=== PATIENT | male | born 1980 | race Hispanic/Latino ===

== ENCOUNTER 2018-03-12 23:23 | Emergency (ER) | payer SELFPAY ==
[2018-03-13] MEDS ORDERED: predniSONE 20 MG TAB ONE (00:40)
== END 2018-03-13 00:43 | disposition home or self-care (01) ==
LOC: ERS 23:23
DX: L73.9 Follicular disorder, unspecified (principal); F17.210 Nicotine dependence, cigarettes, uncomplicated
CPT/HCPCS: 99282; J7506

== ENCOUNTER 2018-10-09 19:40 | Emergency (ER) | payer SELFPAY | END 2018-10-10 00:15 | disposition home or self-care (01) | LOC: ERS 19:40 | DX: S05.02XA Injury of conjunctiva and corneal abrasion without foreign body, left eye, initial encounter (principal); H16.002 Unspecified corneal ulcer, left eye; F17.210 Nicotine dependence, cigarettes, uncomplicated; W22.8XXA Striking against or struck by other objects, initial encounter | CPT/HCPCS: 99283 ==

== ENCOUNTER 2019-02-09 17:44 | Inpatient (IN) | payer SELFPAY ==
[2019-02-09] MEDS ORDERED: Ondansetron ODT 4 MG TAB ONE (18:07)
[2019-02-09 18:35] LABS: #Basophils 0.1 thou/uL (0.0-0.2); #Lymphocytes 2.1 thou/uL (1.20-3.40); #Monocytes 0.9 thou/uL (0.11-0.59); #Neutrophils 12.8 thou/uL (1.40-6.50); %Basophils 0.6 % (0.0-1.0); %Eosinophils 0.1 % (0.0-10.0); %Lymphocytes 13.3 % (21.0-51.0); %Monocytes 5.4 % (0.0-10.0); %Neutrophils 80.6 % (42.0-75.0); Hemoglobin 18.7 g/dL (14.0-18.0); Mean Corpuscular HGB CONC 31.4 g/dL (32.0-36.0); Mean Corpuscular Hemoglobin 28.4 pg (27.0-31.0); Mean Corpuscular Volume 90.4 fL (78.0-98.0); RBC Distribution Width 13.6 % (11.5-14.5); Red Blood Cell (RBC) Count 6.59 mill/uL (4.70-6.10); White Blood Cell (WBC) Count 15.8 thou/uL (4.8-10.8)
[2019-02-09 18:57] LABS: ALT (SGPT) 23 U/L (8-55); AST (SGOT) 28 U/L (5-34); Albumin 5.3 g/dL (3.5-5.0); Alkaline Phosphatase 88 U/L (40-150); Anion Gap 19 mmol/L (10-20); BUN (Urea Nitrogen) 46 mg/dL (8.9-20.6); Bilirubin, Total 1.3 mg/dL (0.2-1.2); Calc. Creatinine Clearance 0 mL/min (70-130); Calcium 11.2 mg/dL (7.8-10.44); Carbon Dioxide 28 mmol/L (22-29); Chloride 91 mmol/L (98-107); Estimated GFR-MDRD 22; Globulin 4.5 g/dL (2.4-3.5); Glucose 132 mg/dL (70-105); Lipase 30 U/L (8-78); Protein, Total 9.8 g/dL (6.0-8.3); Sodium 134 mmol/L (136-145)
[2019-02-09 18:58] LABS: Large Platelets MODERATE; MDiff Complete? YES; Mean Platelet Volume 12.7 fL (7.4-10.4); Platelet Count 225 thou/uL (130-400)
[2019-02-09] MEDS ORDERED: Ondansetron PF 4 MG/2 ML Vial ONE (19:52)
--- NOTE | 2019-02-09 23:23 | ULT ---
Ultrasound renal: HISTORY: Severe acute kidney injury in 38-year-old male FINDINGS: No hydronephrosis bilaterally. Right kidney 10.5 x 5.5 x 5.5 cm Left kidney 11 x 6 x 5.5 cm No gross abnormality of urinary bladder. IMPRESSION: No hydronephrosis.
[2019-02-10 00:39] LABS: Bilirubin Small (Negative); Blood, Urine Negative (Negative); Clarity CLOUDY (Clear); Glucose, Urine (Dipstick) Negative (Negative); Leukocyte Trace (Negative); Nitrite Negative (Negative); Protein, Urine (Dipstick) 30 mg/dL (Neg-Trace); Specific Gravity, Urine 1.022 (1.002-1.036)
[2019-02-10 00:41] LABS: Pathc Cast-AUWi Flag 12.64 (0-2.49)
[2019-02-10 00:51] LABS: Bacteria/HPF Rare-Few HPF (None Seen); Renal Epithelial 0-3 HPF (0-3); Transitional Epithelial 0-3 HPF (0-3)
[2019-02-10 00:52] LABS: Hyaline Casts/LPF >50 HYALINE CAST LPF (0-3 Hyaline); Other Casts/LPF 0-3 FINELY GRAN LPF (0-3 Hyaline)
[2019-02-10] MEDS ORDERED: Ondansetron PF 4 MG/2 ML Vial IVP PRN (01:41)
[2019-02-10] MEDS ORDERED: Ondansetron ODT 4 MG TAB SL PRN (01:41)
[2019-02-10] MEDS ORDERED: Sodium Chloride 0.9% 1,000 ML IV SCH (01:41)
[2019-02-10] MEDS ORDERED: Senokot S 8.6-50 MG TAB PO PRN (01:52)
[2019-02-10] MEDS ORDERED: Acetaminophen 325 MG TAB PO PRN (01:52)
[2019-02-10] MEDS ORDERED: Acetaminophen 650 MG Suppository PR PRN (01:52)
[2019-02-10 02:05] VITALS: BMI 29.9
[2019-02-10] MEDS: Sodium Chloride 0.9% 1,000 ML IV SCH ×4 (02:08→17:02)
--- NOTE | 2019-02-10 02:37 | HP ---
This is SATHYA Whittington dictating a report for Dwayne London MD. CHIEF COMPLAINT: Persistent vomiting. HISTORY OF PRESENT ILLNESS: Mr. Goodwin is a 38-year-old man who presents to the ER today complaining of persistent nausea and vomiting. The patient states he first began to feel unwell on Saturday. 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 The patient states he has had persistent vomiting 3-4 times a day since then. He has had decreased oral intake and has recently noted decreased urinary output. He reports having generalized abdominal soreness associated with persistent vomiting and some mild discomfort in his back again due to the retching. He denies experiencing any associated diarrhea. Has not had fevers, but reports feeling chills at times with sweats. He denies any chest pain, palpitations, or shortness of breath. Has not been around anyone who has been unwell. Denies any recent travels. Denies any alcohol or drug use. He reports having a lack of appetite. He has been drinking excess caffeinated beverages at baseline and has continued to do so. Occasionally, he does drink Gatorade. All other review of systems negative. In the ED, he underwent laboratory studies that showed a severe acute LUCIO. He was started on IV fluids and received 3 L of fluids. ALLERGIES: NO KNOWN DRUG ALLERGIES. CURRENT MEDICATIONS: None. PHYSICAL EXAMINATION: GENERAL: The patient appears well developed, well nourished, in no acute distress. VITAL SIGNS: Temperature 98.3, pulse 79, respirations 17, O2 saturation 98% on room air, blood pressure 119/71. HEENT: Normocephalic and atraumatic. Pupils are equal, round, and reactive to light. Sclerae are without icterus. Oropharynx is clear. NECK: Supple. No lymphadenopathy. LUNGS: Clear to auscultation bilaterally. CARDIAC: Regular rate and rhythm. ABDOMEN: Soft. Mild discomfort to diffuse palpation. No guarding or rigidity. No renal angle tenderness. EXTREMITIES: Without lower leg edema, calf pain, or swelling. NEUROLOGIC: Alert and oriented x3. SKIN: Without rash or jaundice. LABORATORY DATA: White blood count 15.8, hemoglobin 18.7, hematocrit 59.6, platelets 225. Sodium 134, potassium 4.0, chloride 91, carbon dioxide 28, anion gap 19, BUN 46, creatinine 3.20, GFR 22. Last GFR done in February of 2014 showed a GFR of 87. Glucose 132, calcium 11.2, magnesium 3.1, total bilirubin 1.3, AST 28, ALT 23, alkaline phosphatase 88, CK 377. Total protein 9.8, albumin 5.3, lipase 30. Urinalysis, payam and cloudy appearance, protein 30, trace ketones, small bilirubin, trace leukocyte esterase, white blood cells 7 to 10, squamous epithelial cells 4 to 6, greater than 50 hyaline casts. Renal ultrasound, no hydronephrosis. IMPRESSION AND PLAN: Mr. Goodwin is a 38-year-old man, who is being admitted for management of the followin. Severe acute kidney injury. His creatinine is currently 3.2, and GFR is 22. Previously, his GFR was 87 and creatinine was 1.05 back in February 2014. The patient denies having any underlying kidney issues or problems. He is not on any medications. We will continue IV hydration and repeat renal function studies in the morning. Renal ultrasound is unremarkable. Consult has been placed to Nephrology. 2. Nausea and vomiting. The patient with improved symptoms. We will continue antiemetics. 3. Electrolyte abnormalities. His potassium is 4.9, magnesium is 3.1. We will continue to monitor and replace as necessary. 4. Deep venous thrombosis prophylaxis with mechanical SCDs. 5. Gastrointestinal prophylaxis. 6. Full code status. The patient's case was discussed with Dr. London who agrees with plan of care as described above. Job ID: [id number]
[2019-02-10 06:19] LABS: Band 2 % (5-11); Hemoglobin 14.4 g/dL (14.0-18.0); Large Platelets SLIGHT; Lymphocytes 31 % (21-51); MDiff Complete? YES; Mean Corpuscular HGB CONC 31.9 g/dL (32.0-36.0); Mean Corpuscular Hemoglobin 29.6 pg (27.0-31.0); Mean Corpuscular Volume 92.8 fL (78.0-98.0); Monocytes 2 % (0-10); Neutrophil 56 % (42-75); Platelet Count 157 thou/uL (130-400); Platelet Morphology Comment Appears Adequate; RBC Distribution Width 13.4 % (11.5-14.5); Reactive Lymphocytes 9 % (0-10); Red Blood Cell (RBC) Count 4.89 mill/uL (4.70-6.10)
[2019-02-10] MEDS: Famotidine/PF 20 mg/2ml Vial SLOW IVP SCH (08:41)
[2019-02-10 08:43] LABS: Chloride 103 mmol/L (98-107); Potassium 3.5 mmol/L (3.5-5.1); Sodium 136 mmol/L (136-145)
[2019-02-10 08:44] LABS: Glucose 119 mg/dL (70-105)
[2019-02-10 08:45] LABS: Anion Gap 13 mmol/L (10-20); Carbon Dioxide 24 mmol/L (22-29)
[2019-02-10 08:48] LABS: BUN (Urea Nitrogen) 30 mg/dL (8.9-20.6)
[2019-02-10 08:54] LABS: Calc. Creatinine Clearance 97 mL/min (70-130); Calcium 8.9 mg/dL (7.8-10.44); Estimated GFR-MDRD 55
--- NOTE | 2019-02-10 14:10 | PDOC.PN ---
- Subjective Encounter Start Date: 02/10/19 Encounter Start Time: 08:40 Pt seen for followup re: LUCIO. Says he feels better. No vomiting since yesterday. - Objective Resuscitation Status - Order Detail: 02/10/19 01:52 Resuscitation Status Routine Co-Sign Provider: Resuscitation Status: FULL: Full Resuscitation Vital Signs & Weight: Vital Signs (12 hours) Temp Pulse Resp BP Pulse Ox 02/10/19 11:32 98 F 71 17 127/76 97 02/10/19 07:51 98.5 F 75 16 124/63 98 02/10/19 04:00 97.5 F L 73 16 112/67 96 Weight Weight 215 lb I&O: 02/09/19 02/10/19 02/11/19 06:59 06:59 06:59 Intake Total 1470 Balance 1470 Result Diagrams: 02/10/19 05:06 02/10/19 07:38 Phys Exam - Physical Examination Constitutional: NAD HEENT: moist MMs, sclera anicteric, oral pharynx no lesions, 2+ tonsils Neck: no nodes, no JVD, supple, full ROM Respiratory: clear to auscultation bilateral Cardiovascular: RRR, no rub S1, s2 Gastrointestinal: soft, non-tender, no distention, positive bowel sounds Neurological: moves all 4 limbs Psychiatric: normal affect, A&O x 3 Dx/Plan (1) LUCIO (acute kidney injury) Code(s): N17.9 - ACUTE KIDNEY FAILURE, UNSPECIFIED Status: Acute Comment: Prerenal due to vomiting, improving, creatinine 1.44 today (2) Nausea and vomiting Code(s): R11.2 - NAUSEA WITH VOMITING, UNSPECIFIED Status: Resolved - Plan out of bed/ambulate * . Likely home in 24 hrs Review of Systems - Review of Systems Constitutional: negative: fever, chills, sweats, weakness, malaise Respiratory: negative: Cough, Shortness of Breath, SOB with Excertion, Pleuritic Pain, Wheezing Cardiovascular: negative: chest pain, palpitations, orthopnea, paroxysmal nocturnal dyspnea, edema, light headedness Gastrointestinal: negative: Nausea, Vomiting, Abdominal Pain, Diarrhea, Constipation, Melena, Hematochezia Genitourinary: negative: Dysuria, Frequency, Incontinence, Hematuria, Retention - Medications/Allergies Allergies/Adverse Reactions: Allergies Allergy/AdvReac Type Severity Reaction Status Date / Time No Known Allergies Allergy Verified 02/10/19 02:07 Medications: Current Medications Acetaminophen (Tylenol) 650 mg PO Q4H PRN PRN Reason: Headache/Fever/Mild Pain (1-3) Last Admin: 02/10/19 08:41 Dose: 650 mg Acetaminophen (Tylenol) 650 mg AL Q4H PRN PRN Reason: Headache/Fever/Mild Pain (1-3) Famotidine (Pepcid) 20 mg SLOW IVP Q24HR CURTIS Last Admin: 02/10/19 08:41 Dose: 20 mg Sodium Chloride (Normal Saline 0.9%) 1,000 mls @ 125 mls/hr IV .Q8H CURTIS Last Admin: 02/10/19 08:58 Dose: Not Given Senna/Docusate Sodium (Senokot S) 2 tab PO BID PRN PRN Reason: Constipation Sodium Chloride (Flush - Normal Saline) 10 ml IVF Q12HR PRN PRN Reason: Saline Flush Sodium Chloride (Flush - Normal Saline) 10 ml IVF PRN PRN PRN Reason: Saline Flush
--- NOTE | 2019-02-10 14:31 | CON ---
DATE OF CONSULTATION: 02/10/2019 CONSULTING PHYSICIAN: Dr. Borja. REASON FOR CONSULT: Acute kidney injury. REASON FOR ADMISSION: Weakness and vomiting. HISTORY OF PRESENT ILLNESS: A 38-year-old male with a known significant past medical history, came to the hospital with nausea, vomiting, and weakness, and was found to have elevated creatinine. Nephrology consulted. The patient has been throwing up, but not able to eat much in last few days. HOME MEDICATION: None. ALLERGIES: NONE. PAST MEDICAL HISTORY: Not significant. PAST SURGICAL HISTORY: None. SOCIAL HISTORY: No smoking, alcohol, or illicit drugs. FAMILY HISTORY: No history of kidney disease. REVIEW OF SYSTEMS: CONSTITUTIONAL: Negative for weight loss or gain, ability to conduct usual activities. SKIN: Negative for rash, itching. EYES: Negative for double vision, pain. ENT/MOUTH: Negative for nose bleeding, neck stiffness, pain, tenderness. CARDIOVASCULAR: Negative for palpitations, dyspnea on exertion, orthopnea. RESPIRATORY: Negative for shortness of breath, wheezing, cough, hemoptysis, fever or night sweats. GASTROINTESTINAL: Negative for poor appetite, abdominal pain, heartburn, nausea, vomiting, constipation, or diarrhea. GENITOURINARY: Negative for urgency, frequency, dysuria, nocturia. MUSCULOSKELETAL: Negative for pain, swelling. NEUROLOGIC/PSYCHIATRIC: Negative for anxiety, depression. ALLERGY/IMMUNOLOGIC: Negative for skin rash, bleeding tendency. Are negative was supple. PHYSICAL EXAMINATION: GENERAL: Well built male, in no apparent distress. VITAL SIGNS: Temperature 98.5, pulse 75, respiratory rate 16, and blood pressure 124/63. HEENT: Atraumatic and normocephalic. Oral mucosa is moist. NECK: Supple. CV: S1 and S2 heard. Rate and rhythm regular. RESPIRATORY: Clear. GI: Abdomen is soft. MUSCULOSKELETAL: 1+ edema. Dermatologic: No skin rash. NEUROLOGIC: Alert and awake. PSYCHIATRIC: Mood and affect normal LABORATORY DATA: Potassium is 3.5, BUN is 30, and creatinine is 1.4. ASSESSMENT AND PLAN: 1. Acute kidney injury, most likely from volume depletion. Creatinine is better after hydration. Hemoconcentration labs are better. 2. Hyponatremia. Better. 3. Hypoalbuminemia. Most likely from hemoconcentration. 4. Labs are looking better. The patient is clinically and symptomatically better. Continue hydration if tolerated. Renal ultrasound reviewed and no hydronephrosis seen. We will continue to follow. Thank you for the consult. Job ID: [id number]
[2019-02-11] MEDS: Sodium Chloride 0.9% 1,000 ML IV SCH ×2 (01:09→09:12)
[2019-02-11] MEDS: Famotidine/PF 20 mg/2ml Vial SLOW IVP SCH (08:32)
[2019-02-11 08:41] VITALS: BP 124/74; TEMP 97.5
[2019-02-11 10:07] LABS: Anion Gap 8 mmol/L (10-20); BUN (Urea Nitrogen) 15 mg/dL (8.9-20.6); Calc. Creatinine Clearance 142 mL/min (70-130); Calcium 8.9 mg/dL (7.8-10.44); Carbon Dioxide 30 mmol/L (22-29); Chloride 106 mmol/L (98-107); Estimated GFR-MDRD 86; Glucose 105 mg/dL (70-105); Potassium 4.2 mmol/L (3.5-5.1); Sodium 140 mmol/L (136-145)
[2019-02-11 11:06] LABS: Hemoglobin 13.4 g/dL (14.0-18.0); Mean Corpuscular HGB CONC 32.6 g/dL (32.0-36.0); Mean Corpuscular Hemoglobin 30.3 pg (27.0-31.0); Mean Corpuscular Volume 93.1 fL (78.0-98.0); Mean Platelet Volume 13.1 fL (7.4-10.4); Platelet Count 120 thou/uL (130-400); RBC Distribution Width 13.5 % (11.5-14.5); Red Blood Cell (RBC) Count 4.42 mill/uL (4.70-6.10); White Blood Cell (WBC) Count 7.3 thou/uL (4.8-10.8)
[2019-02-11 11:08] LABS: #Eosinphils 0.2 thou/uL (0.0-0.7); #Lymphocytes 2.1 thou/uL (1.20-3.40); #Monocytes 0.5 thou/uL (0.11-0.59); #Neutrophils 4.5 thou/uL (1.40-6.50); %Basophils 0.4 % (0.0-1.0); %Eosinophils 2.4 % (0.0-10.0); %Lymphocytes 28.8 % (21.0-51.0); %Monocytes 6.7 % (0.0-10.0); %Neutrophils 61.8 % (42.0-75.0); Platelet Morphology Comment Appears Decreased; RBC Morphology Normal
--- NOTE | 2019-02-11 11:34 | PRG ---
DATE OF SERVICE: 02/11/2019 SUBJECTIVE: Patient was seen and examined at bedside and overnight events noted. Patient denies any shortness of breath or chest pain or palpitation. No history of nausea or vomiting or diarrhea or fever or chills or cramps. OBJECTIVE: GENERAL: This is a well built male in no apparent distress. VITAL SIGNS: Temperature 97.6. Heart rate 69. Respiratory rate 18. Blood pressure 130/76. HEENT: Atraumatic, normocephalic. Oral mucosa is moist NECK: Supple. CARDIOVASCULAR: S1, S2 heard. Rate and rhythm regular. RESPIRATORY: Clear to auscultation. GASTROINTESTINAL: Abdomen is soft. MUSCULOSKELETAL: No tenderness. No edema. DERMATOLOGIC: No skin rash. NEUROLOGIC: Alert and awake and oriented X3. No focal neurologic deficits. Moving all the extremities. PSYCHIATRIC: Mood and affect normal. LABORATORY DATA: Potassium 4.2, BUN is 15, creatinine is 0.9. ASSESSMENT AND PLAN: 1. Acute kidney injury, much better. 2. Hypovolemia. 3. Hyponatremia. 4. Hyperalbuminemia. Overall labs are better. We will sign off. Job ID: [id number]
[2019-02-11] MEDS ORDERED: Magnesium 2 GM/50 ML 2 GM in Premix Bag 1 BAG IVPB SCH (12:30)
--- NOTE | 2019-02-11 16:33 | DIS ---
DATE OF ADMISSION: 02/09/2019 DATE OF DISCHARGE: 02/11/2019 PRIMARY CARE PROVIDER: None. DISCHARGE DIAGNOSES: 1. Acute kidney injury. 2. Hypovolemia. 3. Hyponatremia. CONDITION OF PATIENT ON THE DAY OF DISCHARGE: Stable. I assessed Mr. Goodwin on the day of discharge. He denies any chest pain or shortness of breath. Vital signs are stable. S1 and S2 are heard, regular. Lungs are clear to auscultation bilaterally. HOSPITAL COURSE: Mr. Goodwin is a pleasant 38-year-old gentleman, who was admitted to [facility] on February 09, 2019 for acute kidney injury, most likely prerenal, in the context of nausea and vomiting. Creatinine at the time of admission was 3.20, improved with intravenous fluids. He was seen by Nephrology Service, Dr. Antonio. His renal failure resolved. He was also hyponatremic at the time of admission, which resolved as well. He is being discharged home in a stable condition. On the day of discharge, he has sodium of 140, potassium of 4.2, creatinine of 0.98, white count 7300, hemoglobin 13.4, and platelet count 120,000. Many thanks for allowing me to participate in your patient's care. Please feel free to contact me with any questions or concerns. DISCHARGE DESTINATION: Home. TIME SPENT: Total amount of time spent coordinating this discharge: 32 minutes. Job ID: [id number]
== END 2019-02-11 15:18 | disposition home or self-care (01) | DRG 683 ==
LOC: ERS 17:44 → T4-A 22:08
PROVIDERS: ADMIT Hospitalist; ATTEND Hospitalist
DX: N17.9 Acute kidney failure, unspecified (principal); E87.1 Hypo-osmolality and hyponatremia; E88.09 Other disorders of plasma-protein metabolism, not elsewhere classified; E86.1 Hypovolemia; Z79.899 Other long term (current) drug therapy
CPT/HCPCS: 36415; 76770; 80048; 80053; 81003; 81015; 82550; 83690; 83735; 85025; 93005; 96361; 96374; J2405; J3475; Q0162; S0028

== ENCOUNTER 2019-04-03 06:09 | Emergency (ER) | payer SELFPAY | END 2019-04-03 06:42 | disposition home or self-care (01) | LOC: ERS 06:09 | DX: R06.02 Shortness of breath (principal); R00.2 Palpitations; R00.0 Tachycardia, unspecified; G47.30 Sleep apnea, unspecified; F17.210 Nicotine dependence, cigarettes, uncomplicated | CPT/HCPCS: 99281 ==

== ENCOUNTER 2021-02-18 23:44 | Emergency (ER) | payer OTHER, SELFPAY ==
[2021-02-19 00:33] LABS: Hemoglobin 15.2 g/dL (14.0-18.0); Mean Corpuscular HGB CONC 33.8 g/dL (32.0-36.0); Mean Corpuscular Hemoglobin 30.9 pg (27.0-31.0); Mean Corpuscular Volume 91.3 fL (78.0-98.0); RBC Distribution Width 12.4 % (11.5-14.5); Red Blood Cell (RBC) Count 4.92 mill/uL (4.70-6.10)
[2021-02-19 00:37] LABS: #Basophils 0.1 thou/uL (0.0-0.2); #Eosinphils 0.5 thou/uL (0.0-0.7); #Lymphocytes 3.5 thou/uL (1.20-3.40); #Monocytes 0.8 thou/uL (0.11-0.59); #Neutrophils 5.1 thou/uL (1.40-6.50); %Basophils 0.6 % (0.0-1.0); %Eosinophils 4.9 % (0.0-10.0); %Lymphocytes 35.5 % (21.0-51.0); %Monocytes 8.3 % (0.0-10.0); %Neutrophils 50.8 % (42.0-75.0); ALT (SGPT) 93 U/L (8-55); AST (SGOT) 81 U/L (5-34); Alkaline Phosphatase 68 U/L (40-110); Anion Gap 12 mmol/L (10-20); BUN (Urea Nitrogen) 13 mg/dL (8.9-20.6); Bilirubin, Total 0.3 mg/dL (0.2-1.2); Calc. Creatinine Clearance 0 mL/min (70-130); Calcium 9.5 mg/dL (7.8-10.44); Carbon Dioxide 26 mmol/L (22-29); Chloride 105 mmol/L (98-107); Glucose 123 mg/dL (70-105); Large Platelets SLIGHT; MDiff Complete? YES; Mean Platelet Volume 12.1 fL (7.4-10.4); Platelet Count 159 thou/uL (130-400); Platelet Morphology Comment Appears Adequate; Potassium 4.2 mmol/L (3.5-5.1); Sodium 139 mmol/L (136-145)
== END 2021-02-19 01:30 ==
LOC: ERS 23:44
DX: R07.89 Other chest pain (principal); G93.5 Compression of brain; G47.30 Sleep apnea, unspecified; F17.210 Nicotine dependence, cigarettes, uncomplicated
CPT/HCPCS: 36415; 70450; 71045; 80053; 84484; 85025; 93005

== ENCOUNTER 2021-07-06 10:30 | Emergency (ER) | payer OTHER ==
[~2021-07-06 10:30] MED LIST: Iopamidol-370 76% 500 ML 1 ML ONE
[2021-07-06 11:27] LABS: Prothrombin Time 13.5 sec (12.0-14.7)
[2021-07-06 11:28] LABS: PTT 37.5 sec (22.9-36.1)
[2021-07-06 11:39] LABS: ALT (SGPT) 269 U/L (8-55); AST (SGOT) 291 U/L (5-34); Alkaline Phosphatase 81 U/L (40-110); Anion Gap 13 mmol/L (10-20); BUN (Urea Nitrogen) 17 mg/dL (8.9-20.6); Bilirubin, Total 0.6 mg/dL (0.2-1.2); Calc. Creatinine Clearance 0 mL/min (70-130); Carbon Dioxide 25 mmol/L (22-29); Chloride 100 mmol/L (98-107); Globulin 3.6 g/dL (2.4-3.5); Glucose 93 mg/dL (70-105); Potassium 4.2 mmol/L (3.5-5.1); Protein, Total 7.6 g/dL (6.0-8.3); Sodium 134 mmol/L (136-145)
[2021-07-06 11:44] LABS: #Lymphocytes 2.8 thou/uL (1.20-3.40); #Monocytes 0.5 thou/uL (0.11-0.59); #Neutrophils 7.3 thou/uL (1.40-6.50); %Basophils 0.3 % (0.0-1.0); %Eosinophils 0.2 % (0.0-10.0); %Lymphocytes 26.8 % (21.0-51.0); %Monocytes 4.2 % (0.0-10.0); %Neutrophils 68.5 % (42.0-75.0); Hemoglobin 15.5 g/dL (14.0-18.0); Mean Corpuscular HGB CONC 31.6 g/dL (32.0-36.0); Mean Corpuscular Hemoglobin 28.8 pg (27.0-31.0); Mean Corpuscular Volume 91.2 fL (78.0-98.0); Platelet Count 180 thou/uL (130-400); RBC Distribution Width 13.2 % (11.5-14.5); Red Blood Cell (RBC) Count 5.37 mill/uL (4.70-6.10); White Blood Cell (WBC) Count 10.6 thou/uL (4.8-10.8)
[2021-07-06] MEDS ORDERED: Ketorolac Tromethamine 30 MG/ML VIAL ONE (12:38)
== END 2021-07-06 14:52 | disposition home or self-care (01) ==
LOC: ERS 10:30
DX: U07.1 COVID-19 (principal); J12.82 Pneumonia due to coronavirus disease 2019; R06.00 Dyspnea, unspecified; R00.0 Tachycardia, unspecified; R74.01 Elevation of levels of liver transaminase levels; G47.30 Sleep apnea, unspecified; E11.9 Type 2 diabetes mellitus without complications; I10 Essential (primary) hypertension; F17.210 Nicotine dependence, cigarettes, uncomplicated; Z79.84 Long term (current) use of oral hypoglycemic drugs; Z79.899 Other long term (current) drug therapy
CPT/HCPCS: 36415; 71045; 71275; 80053; 83605; 83880; 84484; 85025; 85610; 85730; 86140; 93005; 96374; J1885